=== PATIENT | male | born 1950 | race Two or more races ===

== ENCOUNTER 2022-09-14 05:07 | Day surgery (SDC) | payer OTHER ==
[~2022-09-14] VITALS: Ht 175.3 cm; Wt 57.2 kg
[~2022-09-14 05:07] MED LIST: COZAAR50 MG PO
== END 2022-09-14 17:05 | disposition home or self-care (01) ==
LOC: CIR.AMB 05:07
PROVIDERS: ATTEND Surgery
DX: K40.90 Unilateral inguinal hernia, without obstruction or gangrene, not specified as recurrent (principal); D17.6 Benign lipomatous neoplasm of spermatic cord; Z20.822 Contact with and (suspected) exposure to COVID-19; I10 Essential (primary) hypertension
CPT/HCPCS: 49650; C1781